=== PATIENT | female | born 1985 | race Caucasian/White ===

== ENCOUNTER → 2020-04-19 | Outpatient (CLI) | payer OTHER ==
--- NOTE | 2020-04-19 14:19 | XR ---
EXAMINATION TYPE: XR chest 2V DATE OF EXAM: 04/19/2020 COMPARISON: NONE TECHNIQUE: PA and lateral views submitted. HISTORY: Chest pain FINDINGS: The lungs are clear and there is no pneumothorax, pleural effusion, or focal pneumonia. Heart size normal. No overt failure. IMPRESSION: 1. No acute process.
== END | disposition home or self-care (01) ==
LOC: RADXRYALE 14:00
PROVIDERS: ATTEND Physician Assistant Medical
DX: R07.9 Chest pain, unspecified (principal)
CPT/HCPCS: 71046

== ENCOUNTER → 2020-06-05 | Outpatient (CLI) | payer OTHER ==
--- NOTE | 2020-06-05 10:33 | USB ---
Reason for exam: clinical finding. History: Family history of breast cancer in maternal grandmother at age 40. Indicated problem(s): lump or thickening in both breasts. Physical Findings: Nurse Summary: Patient complains of left breast lump x 6 years (nurse mj). US Breast BILAT Right complete breast ultrasound includes all four quadrants, the retroareolar region and axilla. Finding demonstrates a 0.9 x 0.5 x 0.7cm oval, cystic lesion at 9 o'clock and a 0.6 x 0.3 x 0.5cm oval, cystic lesion at 10 o'clock. Left complete breast ultrasound includes all four quadrants, the retroareolar region and axilla. Finding demonstrates a 0.5 x 0.3 x 0.5cm cystic lesion at 2 o'clock and a 0.6 x 0.3 x 0.5cm cystic cluster at 10 o'clock. Thin walled benign cysts. These results were verbally communicated with the patient and result sheet given to the patient on 06/05/20. ASSESSMENT: Benign, BI-RAD 2 RECOMMENDATION: Clinical management of both breasts. Manage patient on a clinical basis.
== END | disposition home or self-care (01) ==
LOC: RADUSWWP 08:23
PROVIDERS: ATTEND Family Medicine
DX: N63.10 Unspecified lump in the right breast, unspecified quadrant (principal); N63.20 Unspecified lump in the left breast, unspecified quadrant